=== PATIENT | female | born 1985 | race American Indian/Alaskan Native ===

== ENCOUNTER 2018-09-10 02:23 | Emergency (ER) | payer SELFPAY ==
[2018-09-10 02:43] VITALS: BP 135/89
[2018-09-10 03:09] LABS: HCG Qualitative,Urine Negative (Negative)
[2018-09-10 03:11] LABS: Bacteria,Urine 1+ /HPF (Negative); Bilirubin,Urine NEG (Negative); Blood,Urine LG (Negative); Color,Urine Yellow (Yellow); Mucus,Urine FEW /HPF; Protein,Urine <15 mg/dL mg/dL (Negative); Urobilinogen,Urine < 2.0 mg/dL (<2.0)
--- NOTE | 2018-09-10 03:48 | Emergency Department Report ---
ED Female HPI - General Chief complaint: Vaginal Bleeding Stated complaint: PELVIC PAIN Time Seen by Provider: 09/10/18 03:34 Source: patient Mode of arrival: Stretcher Limitations: No Limitations - History of Present Illness Initial comments: 33-year-old female presents to the emergency room for pelvic pain since Monday. Patient reports that she started having vaginal bleeding of clots and urinary urgency and frequency that started on Monday. Patient reports that she placed a tampon in the [place] with her cycle and when she removed the tampon there is no blood. Patient reports she passed a few blood clots to her urine. She had last menstrual. Was 08/10/2018. Patient denies any fever chills or nausea no vomiting. She reports no past medical history asthma currently takes no medications on a daily basis and has no known drug allergies. MD Complaint: dysuria, pelvic pain -: days(s) (3) Location: suprapubic Severity: mild Severity scale (0 -10): 1 Consistency: intermittent Improves with: none Worsens with: none Are you Now?: No Last Menstrual Period: 08/10/18 EDC: 05/17/19 - Related Data Sexually active: Yes Previous Rx's Medication Instructions Recorded Last Taken Type Nitrofurantoin Monohyd/M-Cryst 100 mg PO BID #20 capsule 09/10/18 Unknown Rx [Macrobid 100 mg Capsule] Allergies Allergy/AdvReac Type Severity Reaction Status Date / Time No Known Allergies Allergy Unverified 09/10/18 02:43 ED Review of Systems ROS: Stated complaint: PELVIC PAIN Other details as noted in HPI Comment: All other systems reviewed and negative Genitourinary: urgency, dysuria, frequency, hematuria ED Past Medical Hx - Past Medical History Previous Medical History?: No - Surgical History Past Surgical History?: No - Social History Smoking Status: Current Every Day Smoker Substance Use Type: Marijuana - Medications Home Medications: Home Medications Medication Instructions Recorded Confirmed Last Taken Type Nitrofurantoin Monohyd/M-Cryst 100 mg PO BID #20 capsule 09/10/18 Unknown Rx [Macrobid 100 mg Capsule] ED Physical Exam - General Limitations: No Limitations General appearance: alert, in no apparent distress - Head Head exam: Present: atraumatic, normocephalic - Eye Eye exam: Present: normal appearance - ENT ENT exam: Present: mucous membranes moist - Neck Neck exam: Present: normal inspection - Respiratory Respiratory exam: Present: normal lung sounds bilaterally. Absent: respiratory distress - Cardiovascular Cardiovascular Exam: Present: regular rate, normal rhythm. Absent: systolic murmur, diastolic murmur, rubs, gallop - GI/Abdominal GI/Abdominal exam: Present: soft, tenderness (suprapubic tenderness), normal bowel sounds - Extremities Exam Extremities exam: Present: full ROM - Back Exam Back exam: Present: normal inspection - Neurological Exam Neurological exam: Present: alert, oriented X3 - Psychiatric Psychiatric exam: Present: normal affect, normal mood - Skin Skin exam: Present: warm, dry, intact, normal color. Absent: rash ED Course Vital Signs 09/10/18 02:35 Temperature 99.1 F Pulse Rate 82 Respiratory 16 Rate Blood Pressure 135/89 O2 Sat by Pulse 98 Oximetry ED Medical Decision Making - Medical Decision Making Patient has been evaluated by this provider in fast track. Discussed the patient that she has a urinary tract infection I'll place her Macrobid she is to increase her fluid intake if her symptoms persist or gets worse to follow up with her primary care provider. Critical care attestation.: If time is entered above; I have spent that time in minutes in the direct care of this critically ill patient, excluding procedure time. ED Disposition Clinical Impression: UTI (urinary tract infection) Qualifiers: Urinary tract infection type: site unspecified Hematuria presence: with hematuria Qualified Code(s): N39.0 - Urinary tract infection, site not specified; R31.9 - Hematuria, unspecified Disposition: DC-01 TO HOME OR SELFCARE Is pt being admited?: No Does the pt Need Aspirin: No Condition: Stable Instructions: Urinary Tract Infection in Women (ED) Additional Instructions: Please complete antibiotics as prescribed. Please increase her water intake by 2-3 L. If her symptoms persist or gets worse please follow up with her primary care provider Prescriptions: Nitrofurantoin Monohyd/M-Cryst [Macrobid 100 mg Capsule] 100 mg PO BID #20 capsule Referrals: PRIMARY CARE, [Primary Care Provider] - 3-5 Days [facility] [Provider Group] - 3-5 Days Forms: Work/School Release Form(ED)
== END 2018-09-10 03:54 | disposition home or self-care (01) ==
LOC: ED 02:23
DX: N39.0 Urinary tract infection, site not specified (principal); F17.200 Nicotine dependence, unspecified, uncomplicated; F12.10 Cannabis abuse, uncomplicated
CPT/HCPCS: 81001; 81025; 99283